=== PATIENT | male | born 1990 | race Caucasian/White ===

== ENCOUNTER 2016-11-28 14:59 | Emergency (ER) | payer SELFPAY ==
[~2016-11-28] VITALS: Wt 121.0 kg
[~2016-11-28 14:59] MED LIST: ACET500C5 PO; ALBU8.5H3 INH; CEPH-443 PO; HYDR-3498 PO; IBUP-1542 PO; IBUP200C PO; IBUP800T25 PO; POLY10DR19 RIGHT EYE
[2016-11-28 19:11] VITALS: BP 130/62; PULSE 77; RESP 18
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
== END 2016-11-28 19:12 | disposition home or self-care (01) ==
LOC: FTE 14:59
DX: S11.91XA Laceration without foreign body of unspecified part of neck, initial encounter (principal); J45.909 Unspecified asthma, uncomplicated; F17.210 Nicotine dependence, cigarettes, uncomplicated; Y08.89XA Assault by other specified means, initial encounter